=== PATIENT | female | born 1985 | race Asian ===

== ENCOUNTER 2019-07-13 16:42 | Emergency (ER) | payer OTHER ==
[2019-07-13] MEDS ORDERED: Albuterol/Ipratropium NEB.SOL* (2.5/0.5 MG) 3 ML NEB.SOLN INH ONE (17:10)
--- NOTE | 2019-07-13 17:15 | ED ---
HPI Chest Pain - HPI Summary HPI Summary: The patient is a 33-year-old female presenting to [facility] Emergency Department with a chief complaint of left-sided chest pain radiating into the left arm onset this afternoon while at rest. She reports she had been experiencing some pain during her menstrual cycle, but the pain seemed to subside until it returned today. The pain is described as a sharp, dull, aching pain and is currently rated 5/10 in severity. Touch aggravates the pain. She denies any shortness of breath, dizziness, nausea, vomiting, fevers, chills, or cough. No recent travel. No known sick contacts. No past medical history, including cardiac disease. No surgical history. Nonsmoker. No alcohol or substance use. Medications reviewed. Allergies noted. - History of Current Complaint Chief Complaint: EDChestPainROMI Time Seen by Provider: 07/13/19 17:04 Hx Obtained From: Patient Onset/Duration: Started Hours Ago, Still Present Timing: Intermittent Initial Severity: Mild Current Severity: Moderate Pain Intensity: 5 Pain Scale Used: 0-10 Numeric Chest Pain Location: Left Anterior Chest Pain Radiates: Yes Chest Pain Radiates To:: Arm - left Aggravating Factor(s): Other: - touch Alleviating Factor(s): Nothing Associated Signs and Symptoms: Positive: Chest Pain. Negative: Dizziness, Shortness of Breath, Fever, Chills, Nausea, Cough, Vomiting - Allergy/Home Medications Allergies/Adverse Reactions: Allergies Allergy/AdvReac Type Severity Reaction Status Date / Time No Known Allergies Allergy Verified 07/13/19 16:54 PMH/Surg Hx/FS Hx/Imm Hx Endocrine/Hematology History: Denies: Hx Diabetes Cardiovascular History: Denies: Hx Hypercholesterolemia, Hx Hypertension - Surgical History Surgical History: None Infectious Disease History: No Infectious Disease History: Denies: Traveled Outside the [place] in Last 30 Days - Family History Known Family History: Negative: Cardiac Disease, Hypertension - Social History Alcohol Use: None Hx Substance Use: No Substance Use Type: Reports: None Hx Tobacco Use: No Smoking Status (MU): Never Smoked Tobacco Review of Systems Negative: Fever, Chills Positive: Chest Pain - left radiating into LUE Negative: Shortness Of Breath, Cough Negative: Vomiting, Nausea Neurological/Mental Status: Other - Negative: dizziness All Other Systems Reviewed And Are Negative: Yes Physical Exam - Summary Physical Exam Summary: VITAL SIGNS: Reviewed. GENERAL: Patient is a well-developed and nourished female who is lying comfortable in the stretcher. Patient is not in any acute respiratory distress. HEAD AND FACE: No signs of trauma. No ecchymosis, hematomas or skull depressions. No sinus tenderness. EYES: PERRL, EOMI x 2, No injected conjunctiva, no nystagmus. EARS: Hearing grossly intact. Ear canals and tympanic membranes are within normal limits. MOUTH: Oropharynx within normal limits. NECK: Supple, trachea is midline, no adenopathy, no JVD, no carotid bruit, no c- spine tenderness, neck with full ROM. CHEST: Symmetric, some reproducible chest pain to palpation. LUNGS: Clear to auscultation bilaterally. No wheezing or crackles. CVS: Regular rate and rhythm, S1 and S2 present, no murmurs or gallops appreciated. ABDOMEN: Soft, non-tender. No signs of distention. No rebound, no guarding, and no masses palpated. Bowel sounds are normal. EXTREMITIES: FROM in all major joints, no edema, no cyanosis or clubbing. NEURO: Alert and oriented x 3. No acute neurological deficits. Speech is normal and follows commands. SKIN: Dry and warm. Triage Information Reviewed: Yes Vital Signs On Initial Exam: Initial Vitals Temp Pulse Resp BP Pulse Ox 97.8 F 103 18 141/95 100 07/13/19 16:52 07/13/19 16:52 07/13/19 16:52 07/13/19 16:52 07/13/19 16:52 Vital Signs Reviewed: Yes Procedures - Sedation Patient Received Moderate/Deep Sedation with Procedure: No Diagnostics - Vital Signs Vital Signs Temp Pulse Resp BP Pulse Ox 07/13/19 16:52 97.8 F 103 18 141/95 100 - Laboratory Result Diagrams: 07/13/19 17:24 07/13/19 17:24 Lab Statement: Any lab studies that have been ordered have been reviewed, and results considered in the medical decision making process. - EKG 1645 Cardiac Rate: NL - 92 BPM EKG Rhythm: Sinus Rhythm Summary of EKG Findings: EKG at 1645 reveals normal sinus rhythm at 92 BPM. Normal axis. No ST elevations. Dr. Quiros has reviewed and interpreted this EKG. Chest Pain Course/Dx - Course Assessment/Plan: The patient is a 33-year-old female presenting to [facility] Emergency Department with a chief complaint of left-sided chest pain radiating into the left arm onset this afternoon while at rest. She reports she had been experiencing some pain during her menstrual cycle, but the pain seemed to subside until it returned today. The pain is described as a sharp, dull, aching pain and is currently rated 5/10 in severity. Touch aggravates the pain. She denies any shortness of breath, dizziness, nausea, vomiting, fevers, chills, or cough. No recent travel. No known sick contacts. No past medical history, including cardiac disease. No surgical history. Nonsmoker. No alcohol or substance use. Medications reviewed. Allergies noted. There is mild reproducible chest pain to palpation. In the ED course the patient was placed on a room service food service attendant, IV access was obtained. She received Toradol for pain. EKG : normal sinus rhythm at [address] elevations, normal axis. Blood work w/o any significant abnormality. Negative troponin. Patient will be signed out to Dr. Gio Lee MD, at shift change pending CXR and disposition. - Chest Pain Differential Diagnosis/HQI/PQRI: Acute NH, ACS, Angina, CHF, Chest Wall, GI Disease, Lower Respiratory Infection, Pulmonary Edema - Diagnoses Provider Diagnoses: Chest pain - Critical Care Time Critical Care Statement: Critical care time is provided exclusive of any time spent performing procedures. Discharge ED - Sign-Out/Discharge Documenting (check all that apply): Sign-Out Patient Signing out patient TO: Gio Lee - Patient is a sign-out to Dr. Gio Lee MD, at change of shift at 1800 on 07/13/19, pending CXR and disposition. - Discharge Plan Condition: Stable Disposition: HOME Patient Education Materials: Chest Pain (ED), Pleurisy (ED) Referrals: Romina Lr MD [Primary Care Provider] - Additional Instructions: You were seen in the emergency department for chest pain. Your EKG (heart tracing), labs and chest x-ray did not show any cause for pain. Important that you follow up with you primary care doctor in the next 1-2 days.. Please return to the emergency department for continued chest pain, trouble breathing, passing out, or if you're concerned. - Billing Disposition and Condition Condition: STABLE Disposition: Home - Attestation Statements Document Initiated by Monserratibe: Yes Documenting Scribe: Carol Rosales Provider For Whom Danyell is Documenting (Include Credential): Lewis Quiros MD Scribe Attestation: Carol Sanon, scribed for Lewis Quiros MD on 07/14/19 at 0740. Scribe Documentation Reviewed: Yes Provider Attestation: The documentation as recorded by the Carol weinstein accurately reflects the service I personally performed and the decisions made by me, Lewis Quiors MD Status of Scribe Document: Viewed
[2019-07-13 17:41] LABS: ABS Basophils 0.1 10^3/ul (0-0.2); ABS Lymphocytes 2.8 10^3/ul (1.0-4.8); ABS Monocytes 0.5 10^3/ul (0-0.8); ABS Neutrophils 3.9 10^3/ul (1.5-7.7); Eosinophil % 0.5 %; Hematocrit 39 % (35-47); Hemoglobin 13.2 g/dL (12.0-16.0); Lymphocyte % 37.6 %; Mean Corpuscular HGB Conc 34 g/dL (31-36); Mean Corpuscular Hemoglobin 27 pg (27-31); Mean Corpuscular Volume 81 fL (80-97); Mean Platelet Volume 7.5 fL (7.4-10.4); Nucleated Red Blood Cells % 0.1; Platelet Count 320 10^3/uL (150-450); Red Blood Count 4.85 10^6 /uL (3.70-4.87); Red Cell Distribution Width 15 % (10-15); White Blood Count 7.3 10^3/uL (3.5-10.8)
[2019-07-13] MEDS ORDERED: Ketorolac *IM* INJ* 60 MG/2 ML VIAL IM ONE (17:49)
[2019-07-13] MEDS ORDERED: Albuterol/Ipratropium NEB.SOL* (2.5/0.5 MG) 3 ML NEB.SOLN INH SCH (18:00)
[2019-07-13 18:02] LABS: Albumin 4.3 g/dL (3.2-5.2); Albumin/Globulin Ratio 1.3 (1-3); BUN/Creatinine Ratio 10.3 (8-20); Calcium 9.6 mg/dL (8.6-10.3); Globulin 3.3 g/dL (2-4); Magnesium 1.8 mg/dL (1.9-2.7); Potassium 3.6 mmol/L (3.5-5.0); Total Bilirubin 0.3 mg/dL (0.2-1.0); Total Protein 7.6 g/dL (6.4-8.9); Troponin I 0.01 ng/mL (<0.03)
[2019-07-13 18:04] LABS: CKMB ng/mL 1.5 ng/mL (0.6-6.3)
[2019-07-13] MEDS ORDERED: Magnesium Oxide TAB* 400 MG PO ONE (18:05)
[2019-07-13 18:14] LABS: TSH (Thyroid Stimulating Horm) 3.1 mcIU/mL (0.34-5.60)
--- NOTE | 2019-07-13 18:42 | ED ---
Progress - Progress Note Progress Note: 33 y/o F signed out from Lewis Quiros MD upon shift change 07/13/2019 1900 pending CXR and disposition. CXR shows no acute process. Pending official report. Course/Dx - Diagnoses Provider Diagnoses: Chest pain - Critical Care Time Critical Care Statement: Critical care time is provided exclusive of any time spent performing procedures. Discharge ED - Sign-Out/Discharge Documenting (check all that apply): Patient Departure, Receiving Sign-Out Receiving patient FROM: Lewis Quiros - Discharge Plan Condition: Stable Disposition: HOME Patient Education Materials: Chest Pain (ED), Pleurisy (ED) Referrals: Romina Lr MD [Primary Care Provider] - Additional Instructions: You were seen in the emergency department for chest pain. Your EKG (heart tracing), labs and chest x-ray did not show any cause for pain. Important that you follow up with you primary care doctor in the next 1-2 days.. Please return to the emergency department for continued chest pain, trouble breathing, passing out, or if you're concerned. - Billing Disposition and Condition Condition: STABLE Disposition: Home - Attestation Statements Document Initiated by Scribe: Yes Documenting Scribe: Kimberly Albrecht Provider For Whom Scribe is Documenting (Include Credential): iGo Lee MD Scribe Attestation: IKimberly, scribed for Gio Lee MD on 07/13/19 at 1858. Scribe Documentation Reviewed: Yes Provider Attestation: The documentation as recorded by the scribeKimberly accurately reflects the service I personally performed and the decisions made by Gio shea MD Status of Scribe Document: Viewed
[2019-07-13 18:53] VITALS: BP 116/71
== END 2019-07-13 18:53 | disposition home or self-care (01) ==
LOC: ED 16:42
DX: R07.9 Chest pain, unspecified (principal); R94.31 Abnormal electrocardiogram [ECG] [EKG]
CPT/HCPCS: 36415; 71046; 80053; 82550; 82553; 83605; 83735; 83880; 84443; 84484; 85025; 93005; 96372; 99283; J1885